=== PATIENT | male | born 1965 | race Caucasian/White ===

== ENCOUNTER 2017-11-11 06:20 | Day surgery (SDC) | payer BC ==
[~2017-11-11] VITALS: Ht 172.7 cm; Wt 79.4 kg
[~2017-11-11 06:20] MED LIST: IMITREX 6M6 MG/0.5 M SQ; NO HOME MEDICATIONS; PERCOCET 325 MG1 TA2 PO
[2017-11-11 06:39] VITALS: BP 115/83; PULSE 67; TEMP 97.7
[2017-11-11 08:15] VITALS: BP 107/86; PULSE 70; TEMP 98.2
[2017-11-11 08:30] VITALS: BP 100/73; PULSE 57
== END 2017-11-11 08:49 | disposition home or self-care (01) ==
LOC: SDCO 06:20
DX: Z12.11 Encounter for screening for malignant neoplasm of colon (principal)
CPT/HCPCS: J2250; J3010

== ENCOUNTER 2021-10-28 12:11 | Emergency (ER) | payer OTHER ==
[~2021-10-28] VITALS: Ht 172.7 cm; Wt 75.0 kg
[2021-10-28 13:32] VITALS: BP 128/87; PULSE 82; TEMP 98.2
== END 2021-10-28 13:32 | disposition home or self-care (01) ==
LOC: COL.ER 12:11
DX: S61.411A Laceration without foreign body of right hand, initial encounter (principal); W20.8XXA Other cause of strike by thrown, projected or falling object, initial encounter; Y92.59 Other trade areas as the place of occurrence of the external cause; Y99.0 Civilian activity done for income or pay

== ENCOUNTER → 2021-11-04 | Outpatient (CLI) | payer SELFPAY ==
[2021-11-04 09:03] VITALS: BP 127/85; PULSE 71; TEMP 97.8
== END ==
LOC: COL.ER 08:53
DX: Z48.02 Encounter for removal of sutures (principal)